=== PATIENT | female | born 1940 | race Caucasian/White ===

== ENCOUNTER 2017-09-27 22:37 | Inpatient (IN) | payer MEDICARE ==
[~2017-09-27] VITALS: Ht 152.4 cm; Wt 55.0 kg
[~2017-09-27 22:37] MED LIST: ATOR20TA15 PO; CALC500T37 PO; CITA10TA4 PO; DENO60P SQ; DOXY100C PO; ESTR0.5T PO; LANS30CA PO; LEVO100T5 PO; LORA0.5T PO; METO25TA3 PO; PERC5TAB12 PO; WOMETAB5; [UNRECOGNIZED DRUG - CODE]
[2017-09-27 22:46] VITALS: BP 120/73; PULSE 62; RESP 18; TEMP 98.1; O2SAT 96
--- NOTE | 2017-09-27 23:04 | PD ---
HPI Chief Complaint: Hip Injury Time Seen by Provider: 22:50 Travel History International Travel<30 days: No Contact w/Intl Traveler<30days: No Traveled to known affect area: No History of Present Illness HPI Patient is a 77-year-old female walking her dog tonight tripped over the dog fell on her buttock right-sided has right-sided hip pain unable to stand on her leg since the incident. She was transported to ER by EMS who gave her 6 of morphine in route she reports that she did not fall on cement and that the pain is very localized to the right inguinal area made worse with movement it hurt more with the bouncing of the ambulance. She has a past medical history of having back surgery and a CABG, patient is a history of having back surgery with screws in her lumbar spine that had dislodged due to osteoporosis. Tonight she fell landed on her buttocks on the grass was unable to weight-bear severe sharp pain in her right inguinal area paramedics gave her for morphine en route and when she arrives to me her exam is minimal pain reaction when I do internal rotation of her femur. X-rays are ordered labs are sent at this time her pain is 2 out of 10 when she does not move lying in stretcher at this time it is a dull ache in the right inguinal area without radiation PFSH Past Medical History Arthritis: Yes Anxiety: Yes Depression: Yes Cardiovascular Problems: Yes (CABG x4) High Cholesterol: Yes Coronary Artery Disease: Yes Diminished Hearing: Yes (Bilateral hearing aids) Thyroid Disease: Yes Tetanus Vaccination: Unknown Influenza Vaccination: No Past Surgical History Coronary Artery Bypass Graft: Yes (x4) Hysterectomy: Yes Joint Replacement: Yes (L hip,R knee) Neurologic Surgery: Yes (back surgery for scoliosis) Social History Alcohol Use: Yes (occasionally ) Tobacco Use: No Substance Use: No Allergies-Medications (Allergen,Severity, Reaction): Coded Allergies: Penicillins (Verified Adverse Reaction, Unknown, 05/14/17) Reported Meds & Prescriptions Reported Meds & Active Scripts Active Calcium 600+D 200 (Calcium Carbonate-Vitamin D) 600-200 Mg-Unit Tab 1 Tab PO BID Ergocalciferol 50,000 Unit Cap 50,000 Units PO Q7D Xarelto (Rivaroxaban) 10 Mg Tab 10 Mg PO DAILY Croydon (Hydrocodone-Acetaminophen) 5 Mg-325 Mg Tab 1 Tab PO Q4H PRN Reported Levothyroxine (Levothyroxine Sodium) 100 Mcg Tab 100 Mcg PO DAILY 90 Days Atorvastatin (Atorvastatin Calcium) 20 Mg Tab 20 Mg PO HS Lorazepam 0.5 Mg Tab 0.5 Mg PO TID PRN Estradiol 0.5 Mg Tab 0.5 Mg PO DAILY Citalopram (Citalopram Hydrobromide) 10 Mg Tab 10 Mg PO DAILY Lansoprazole 30 Mg Capdr 30 Mg PO DAILY Calcium Ascorbate 500 Mg Tab 600 Mg PO Strontium Nitrate (Strontium Nitrate (Bulk)) 1 Cry Cry 1 Tab BID Womens One Daily (Multiple Vitamins W/ Minerals) 27 Mg-0.4 Mg Tab Prolia Inj (Denosumab) 60 Mg/Ml Inj 60 Mg SQ Q180D Review of Systems Except as stated in HPI: all other systems reviewed are Neg Physical Exam Narrative GENERAL: laying flat in stretcher SKIN: Warm and dry. HEAD: Atraumatic. Normocephalic. EYES: Pupils equal and round. No scleral icterus. No injection or drainage. ENT: No nasal bleeding or discharge. Mucous membranes pink and moist. NECK: Trachea midline. No JVD. CARDIOVASCULAR: Regular rate and rhythm. RESPIRATORY: No accessory muscle use. Clear to auscultation. Breath sounds equal bilaterally. GASTROINTESTINAL: Abdomen soft, non-tender, nondistended. Hepatic and splenic margins not palpable. MUSCULOSKELETAL: Extremities + mild tenderness with internal rotation of femur ,( pt had 6 mg IVP of morphine prior to arrival ) . No obvious deformities. NEUROLOGICAL: Awake and alert. No obvious cranial nerve deficits. Motor grossly within normal limits. Five out of 5 muscle strength in the arms and legs. Normal speech. PSYCHIATRIC: Appropriate mood and affect; insight and judgment normal. Data Data Last Documented VS Vital Signs Date Time Temp Pulse Resp B/P (MAP) Pulse Ox O2 Delivery O2 Flow Rate FiO2 09/27/17 22:46 98.1 62 18 120/73 (89) 96 Orders Orders Hip, Uni(4+Vws) W Ap Pelvis (09/27/17 ) Morphine Inj (Morphine Inj) (09/28/17 00:15) Admit To Inpatient (09/28/17 ) Vital Signs (Adult) Q4H (09/28/17 00:07) Activity Bed Rest (09/28/17 00:07) Intake + Output ROMAN.QSHIFT (09/28/17 00:07) Sodium Chlor 0.9% 1000 Ml Inj (Ns 1000 M (09/28/17 00:07) Sodium Chloride 0.9% Flush (Ns Flush) (09/28/17 00:15) Sodium Chloride 0.9% Flush (Ns Flush) (09/28/17 09:00) Ondansetron Inj (Zofran Inj) (09/28/17 00:15) Comprehensive Metabolic Panel (09/29/17 06:00) Complete Blood Count With Diff (09/29/17 06:00) Pt Request For Service (09/28/17 00:07) Case Management Consult (09/28/17 00:07) Acetaminophen (Tylenol) (09/28/17 00:15) Acetamin-Hydrocod 325-5 Mg (Croydon 5-325 (09/28/17 00:15) Morphine Inj (Morphine Inj) (09/28/17 00:15) Docusate Sodium-Senna (Dayana-Colace) (09/28/17 09:00) Magnesium Hydroxide Liq (Milk Of Magnesi (09/28/17 00:15) Sennosides (Senokot) (09/28/17 00:15) Bisacodyl Supp (Dulcolax Supp) (09/28/17 00:15) Lactulose Liq (Lactulose Liq) (09/28/17 00:15) Inpatient Certification (09/28/17 ) Atorvastatin (Lipitor) (09/28/17 21:00) Citalopram (Celexa) (09/28/17 09:00) Lorazepam (Ativan) (09/28/17 00:15) Metoprolol Tartrate (Lopressor) (09/28/17 09:00) Pantoprazole (Protonix) (09/28/17 09:00) Admit Order (Ed Use Only) (09/28/17 00:10) MDM Medical Decision Making Medical Screen Exam Complete: Yes Emergency Medical Condition: Yes Differential Diagnosis fractured hip versus dislocation vs contusion vs pelvic ramus fracture vs lumbral spine injury Narrative Course pt xray shows angulated proximal femur fracture , Pt placed in [place] traction and per request of Dr Mckoy and admitted to meds/surg for OR in AM pain meds NPO and IV fluid admit. Diagnosis Primary Impression: Hip fracture, right Qualified Codes: S72.001A - Fracture of unspecified part of neck of right femur, initial encounter for closed fracture Scripts Metoprolol Tartrate (Metoprolol Tartrate) 25 Mg Tab 12.5 MG PO BID for Blood Pressure Management, #60 TAB 0 Refills Prov: Fer Sanchez MD 09/30/17 Calcium Carbonate-Vitamin D (Calcium 600+D 200) 600-200 Mg-Unit Tab 1 TAB PO BID for Nutritional Supplement, #90 TAB 0 Refills Prov: Sudhakar Farooq Jr. 09/28/17 Ergocalciferol (Ergocalciferol) 50,000 Unit Cap 33348 UNITS PO Q7D for Nutritional Supplement, #8 CAP Prov: Sudhakar Farooq Jr. 09/28/17 Rivaroxaban (Xarelto) 10 Mg Tab 10 MG PO DAILY for Blood Clot Prevention, #14 TAB 0 Refills Prov: Sudhakar Farooq Jr. 09/28/17 Hydrocodone-Acetaminophen (Croydon) 5 Mg-325 Mg Tab 1 TAB PO Q4H Y for PAIN, #60 TAB 0 Refills Prov: Sudhakar Farooq Jr. 09/28/17 Emmanuel Davalos MD Sep 27, 2017 23:04
--- NOTE | 2017-09-27 23:46 | RADRPT ---
EXAM DATE/TIME: 09/27/2017 23:28 [facility] COMPARISON: No previous studies available for comparison. INDICATIONS : Pain due to fall. MEDICAL HISTORY : Myocardial infarction. SURGICAL HISTORY : CABG. Right knee, left hip, lumbar. ENCOUNTER: Initial ACUITY: 1 day PAIN SCORE: 6/10 LOCATION: Right hip. FINDINGS: There is an angulated fracture of the proximal right femur which extends through the proximal shaft a nd lesser trochanter. There is almost 45 angulation and lateral displacement of the proximal fractu re fragment. The femoral head remains projected within the acetabulum. The bony acetabulum is intac t. Left total hip arthroplasty. Multilevel posterior instrumentation in the lower lumbar region and ezra ateral SI joint screws. CONCLUSION: Angulated and displaced fracture of the proximal femur. Silas Watts MD on September 27, 2017 at 23:42 Board Certified Radiologist. This report was verified electronically.
[2017-09-28] VITALS (8 sets, daily range): BP systolic 106–135; BP diastolic 52–64; PULSE 65–79; RESP 16–20; TEMP 97.4–98.3; O2SAT 95–99
[2017-09-28] MEDS ORDERED: SODIUM CHLORIDE 0.9% FLUSH 10 ML FLUSH IV FLUSH PRN (00:15)
[2017-09-28] MEDS ORDERED: MORPHINE SULFATE 2 MG/ML SYRINGE IV PUSH PRN (00:15)
[2017-09-28] MEDS ORDERED: LACTULOSE SYRUP 20 GM/30 ML CUP PO PRN (00:15)
[2017-09-28] MEDS ORDERED: SENNOSIDES 8.6 MG TAB PO PRN (00:15)
[2017-09-28] MEDS ORDERED: MAGNESIUM HYDROXIDE SUSP 30 ML CUP PO PRN (00:15)
[2017-09-28] MEDS ORDERED: MORPHINE SULFATE 4 MG/ML INJ IV PUSH ONE (00:15)
[2017-09-28] MEDS ORDERED: ONDANSETRON HCL 4 MG/2 ML VIAL IVP PRN (00:15)
[2017-09-28] MEDS ORDERED: LORazepam 0.5 MG TAB PO PRN (00:15)
[2017-09-28] MEDS ORDERED: BISACODYL 10 MG SUPP RECTAL PRN (00:15)
[2017-09-28] MEDS ORDERED: ACETAMINOPHEN 325 MG TAB PO PRN (00:15)
[2017-09-28] MEDS: SODIUM CHLOR 0.9% 1000 ML INJ 1,000 ML IV SCH ×3 (00:21→21:30)
[2017-09-28] MEDS ORDERED: diphenhydrAMINE HCL 50 MG/ML VIAL IV PUSH ONE (00:30)
[2017-09-28] MEDS ORDERED: DIAZEPAM 5 MG TAB PO PRN (00:45)
[2017-09-28] MEDS: HYDROmorphone HCL PF 0.5 MG/0.5 ML SYRINGE IV PUSH PRN ×2 (01:01→05:02)
--- NOTE | 2017-09-28 01:23 | HHI.HP ---
HPI Service [facility] Primary Care Physician Unknown Admission Diagnosis hip fracture Diagnoses: (1) Fall Diagnosis: Principal (2) Hip fracture, right Diagnosis: Principal (3) HTN (hypertension) Diagnosis: Principal Travel History International Travel<30 Days: No Contact w/Intl Traveler <30 Da: No Traveled to Known Affected Are: No History of Present Illness This is a 77-year-old female with a PMH of Anxiety, Depression, HTN, Hyperlipidemia, CAD and Hypothyroidism who was brought to the ER by EMS secondary to fall with right hip pain. Patient states she has had previous back surgery for scoliosis approx 3 years ago and has had some gait imbalance since then, tonight states she was out walking her dog on a grassy area and became unsteady on her feet, landed on her right side. No LOC or head trauma. Severe right hip pain, constant, 10/10, non-radiating, worse w/ movement. On arrival, BP 120/73, HR 62, O2 sat 96% on RA, Afebrile. Hip X-ray was angulated and displaced fracture of proximal femur. Dr. Mckoy consulted by ER physician , patient placed in traction, plan for surgical intervention in a.m. Review of Systems Except as stated in HPI: all other systems reviewed are Neg ROS: 14 point review of systems otherwise negative. Past Family Social History Past Medical History PMH: Anxiety, Depression, HTN, Hyperlipidemia, CAD and Hypothyroidism Past Surgical History PAST SURGICAL HISTORY: CABG, Left Hip Replacement, Right Knee Replacement, Back Surgery, Hysterectomy Allergies: Coded Allergies: Penicillins (Verified Adverse Reaction, Unknown, 05/14/17) Family History PAST FAMILY HISTORY: Reviewed. No h/o DM or CAD Social History PAST SOCIAL HISTORY: Occasional alcohol. Negative for tobacco or drugs per Physical Exam Vital Signs Vital Signs Date Time Temp Pulse Resp B/P (MAP) Pulse Ox O2 Delivery O2 Flow Rate FiO2 09/28/17 00:17 65 20 109/56 (73) 95 Room Air 09/27/17 22:46 98.1 62 18 120/73 (89) 96 Physical Exam PE: GENERAL: Elderly white female in no acute distress, however complains of pain. at bedside. HEENT: PERRLA, EOMI. No scleral icterus or conjunctival pallor. No lid lag or facial droop. CARDIOVASCULAR: Regular rate and rhythm. No obvious murmurs to auscultation. No chest tenderness to palpation. RESPIRATORY: No obvious rhonchi or wheezing. Clear to auscultation. Breath sounds equal bilaterally. GASTROINTESTINAL: Abdomen soft, non-tender, nondistended. BS normal. MUSCULOSKELETAL: Extremities without clubbing, cyanosis, or edema. No obvious deformities. RLE in traction, decreased ROM due to injury. NEUROLOGICAL: Awake, alert and oriented x4. No focal neurologic deficits. Moving both upper and lower extremities spontaneously. Caprini VTE Risk Assessment Caprini VTE Risk Assessment: Mod/High Risk (score >= 2) Caprini Risk Assessment Model Point Value = 1 Point Value = 2 Point Value = 3 Point Value = 5 Age 41-60 Minor surgery BMI > 25 kg/m2 Swollen legs Varicose veins or History of unexplained or recurrent spontaneous Oral contraceptives or hormone replacement Sepsis (< 1 month) Serious lung disease, including pneumonia (< 1 month) Abnormal pulmonary function Acute myocardial infarction Congestive heart failure (< 1 month) History of inflammatory bowel disease Medical patient at bed rest Age 61-74 Arthroscopic surgery Major open surgery (> 45 min) Laparoscopic surgery (> 45 min) Malignancy Confined to bed (> 72 hours) Immobilizing plaster cast Central venous access Age >= 75 History of VTE Family history of VTE Factor V Leiden Prothrombin [id number] Lupus anticoagulant Anticardiolipin antibodies Elevated serum homocysteine Heparin-induced thrombocytopenia Other congenital or acquired thrombophilia Stroke (< 1 month) Elective arthroplasty Hip, pelvis, or leg fracture Acute spinal cord injury (< 1 month) Prophylaxis Regimen Total Risk Factor Score Risk Level Prophylaxis Regimen 0-1 Low Early ambulation 2 Moderate Order ONE of the following: *Sequential Compression Device (SCD) *Heparin 5000 units SQ BID 3-4 Higher Order ONE of the following medications: *Heparin 5000 units SQ TID *Enoxaparin/Lovenox 40 mg SQ daily (WT < 150 kg, CrCl > 30 mL/min) *Enoxaparin/Lovenox 30 mg SQ daily (WT < 150 kg, CrCl > 10-29 mL/min) *Enoxaparin/Lovenox 30 mg SQ BID (WT < 150 kg, CrCl > 30 mL/min) AND/OR *Sequential Compression Device (SCD) 5 or more Highest Order ONE of the following medications: *Heparin 5000 units SQ TID (Preferred with Epidurals) *Enoxaparin/Lovenox 40 mg SQ daily (WT < 150 kg, CrCl > 30 mL/min) *Enoxaparin/Lovenox 30 mg SQ daily (WT < 150 kg, CrCl > 10-29 mL/min) *Enoxaparin/Lovenox 30 mg SQ BID (WT < 150 kg, CrCl > 30 mL/min) AND *Sequential Compression Device (SCD) Assessment and Plan Problem List: (1) Fall ICD Code: W19.XXXA - Unspecified fall, initial encounter (2) Hip fracture, right ICD Code: S72.001A - Fracture of unspecified part of neck of right femur, initial encounter for closed fracture Status: Acute (3) HTN (hypertension) ICD Code: I10 - Essential (primary) hypertension Assessment and Plan A/P: 1. Fall: s/p mechanical fall while walking her dog, no LOC or head trauma. 2. Right Hip Fx: Hip X-ray w/ angulated and displaced fracture proximal femur , images reviewed by me. Dr. Mckoy consulted, plan is for surgical intervention in am. NPO, IVF, analgesics/antiemetics, +muscle spasm, will start Valium prn. Labs pending, follow-up pre-op labs. 3. HTN: On Metoprolol at home, will resume w/ hold parameters as BP 100's. Monitor BP. 4. DVT Prophylaxis: Anticoagulation post op 5. Social work for dc planning as needed. 6. Case discussed w/ ER physician at length, records/imaging reviewed by me. Physician Certification 2 Midnight Certification Type: Admission for Inpatient Services Order for Inpatient Services The services are ordered in accordance with Medicare regulations or non- Medicare payer requirements, as applicable. In the case of services not specified as inpatient-only, they are appropriately provided as inpatient services in accordance with the 2-midnight benchmark. Estimated LOS (days): 2 days is the estimated time the patient will need to remain in the hospital, assuming treatment plan goals are met and no additional complications. Post-Hospital Plan: Not yet determined Problem Qualifiers (1) Hip fracture, right: Qualified Codes: S72.001A - Fracture of unspecified part of neck of right femur , initial encounter for closed fracture Carolina Mota MD Sep 28, 2017 01:23
[2017-09-28] MEDS ORDERED: POVIDONE IODINE 5% (ANTISEPSIS KIT) 4 APPLICATIONS EACH NARE PRN (02:15)
[2017-09-28] MEDS ORDERED: SODIUM CHLORID 0.9% 500 ML IV PRN (02:15)
[2017-09-28] MEDS ORDERED: CHLORHEXIDINE GLUCONATE 2 % 1 PACK (2 CLOTHS) TOPICAL PRN (02:15)
[2017-09-28] MEDS ORDERED: LACTATED RINGER'S 1000 ML IV PRN (02:15)
[2017-09-28 06:20] LABS: PROTHROMBIN TIME - PATIENT 10.3 SEC (9.8-11.6)
[2017-09-28] MEDS ORDERED: VANCOMYCIN HCL 1000 MG VIAL ONE (07:15)
[2017-09-28] MEDS ORDERED: SODIUM CHLOR 0.9% 250 ML INJ 250 ML ONE (07:16)
[2017-09-28] MEDS ORDERED: GENTAMICIN SULFATE 80 MG/2 ML VIAL ONE (07:16)
--- NOTE | 2017-09-28 07:23 | PD.ORT.PN ---
Subjective Subjective Remarks Mechanical fall. Right hip pain with fracture. Fell when walking dog Objective Vitals Vital Signs Date Time Temp Pulse Resp B/P (MAP) Pulse Ox O2 Delivery O2 Flow Rate FiO2 09/28/17 07:08 98.3 69 17 110/57 (74) 97 09/28/17 05:32 20 09/28/17 04:00 97.7 66 19 108/57 (74) 96 09/28/17 01:50 97.5 69 17 106/52 (70) 98 09/28/17 01:30 16 98 2.00 09/28/17 00:17 65 20 109/56 (73) 95 Room Air 09/27/17 22:46 98.1 62 18 120/73 (89) 96 I/O 09/27/17 09/27/17 09/27/17 09/28/17 09/28/17 09/28/17 07:00 15:00 23:00 07:00 15:00 23:00 Output Total 400 ml Balance -400 ml Output Urine Total 400 ml # Bowel Movements 0 Other Results Laboratory Tests Test 09/28/17 04:36 Prothromb Time International Ratio 1.0 RATIO Prothrombin Time 10.3 SEC (9.8-11.6) Objective Remarks Bilateral upper extremities: Full range of motion neurovascularly intact Left lower extremity: Range of motion neurovascularly intact Right lower extremity: Pain to palpation of hip pain with any movement of hip. She has total knee incision that is well-healed. Distally she has intact sensation with good capillary refills with active dorsiflexion and plantarflexion of foot Assessment & Plan Assessment and Plan Right intertrochanteric femur fracture N.p.o. Sign consents Surgery this morning for reduction of right femur and intramedullary sathya fixation Sudhakar Farooq Jr. Sep 28, 2017 07:23
[2017-09-28] MEDS ORDERED: ceFAZolin 2 GM PREMIX 50 ML ONE (09:14)
--- NOTE | 2017-09-28 09:28 | MB ---
cc: Garcia Webster MD DATE: 09/28/2017 REASON FOR CONSULTATION: Right proximal femur fracture CONSULTING PHYSICIAN: Dr. Mota. HISTORY OF PRESENT ILLNESS: Samara is a 77-year-old female who has a history of anxiety, depression, hypertension, high cholesterol, coronary artery disease and hypothyroidism. She describes a mechanical fall. She was walking her dog when she lost her balance and fell. She landed on her right side. She had immediate right hip pain. She presented to the Emergency Room where x-rays revealed a displaced right proximal femur fracture. She is currently awake and alert and on the orthopedic floor. Pain is worse with movement and does improve with rest. She denies dizziness, syncope, or loss of consciousness. PAST MEDICAL HISTORY: Anxiety, depression, hypertension, high cholesterol, coronary artery disease, and hypothyroidism. PAST SURGICAL HISTORY: Coronary artery bypass, left hip replacement, right knee replacement, back surgery, and hysterectomy. ALLERGIES: PENICILLINS. MEDICATIONS: Please see EMR for complete list of inpatient medications. This was reviewed. SOCIAL HISTORY: The patient drinks alcohol occasionally. She denies tobacco or drug use. FAMILY HISTORY: Noncontributory. REVIEW OF SYSTEMS: The patient denies headache, visual changes, neck pain, chest pain, shortness of breath, abdominal pain, nausea, vomiting, recent weight loss or fevers or chills or numbness or tingling of her extremities. She complains of right hip pain. The pain is worse with movement. LABORATORY DATA: The patient has an INR of 1.0. IMAGING STUDIES: X-rays of the right hip are reviewed. X-rays reveal a displaced right hip subtrochanteric fracture. PHYSICAL EXAMINATION: GENERAL: The patient is a mildly anxious 77-year-old female. She is awake and alert. She appears well-developed, well nourished. She is in no acute distress. VITAL SIGNS: Temperature 98.3, pulse 69, respirations 17, blood pressure 110/57, O2 saturation 97% on room air. HEENT: Head: The patient is normocephalic. Pupils are equal. NECK: Soft, nontender. The trachea is in the midline. ABDOMEN: Soft, nontender, and nondistended. EXTREMITIES: Examination of bilateral upper extremities reveals no pain with shoulder, elbow, or wrist motion. She has intact sensation in all fingers. She has good cap refill at fingers. Skin is intact. Radial pulses are palpable. Examination of right leg reveals pain with any hip motion. She is tender to palpation on her proximal femur and hip. She has no tenderness on her knee, tibia or ankle. Skin is intact. Dorsalis pedis pulses palpable. Sensation is intact. Examination of left leg reveals no pain with hip, knee or ankle motion. Skin is intact. Dorsalis pedis pulses palpable. Sensation is intact. IMPRESSION: 1. Displaced right proximal femur fracture. 2. Postmenopausal osteoporosis. 3. Anxiety. 4. Hypertension. 5. Coronary artery disease. 6. Hypothyroidism. PLAN: Treatment options were discussed with the patient. At this point, I would recommend right femur reduction and intramedullary nail fixation. Risks of surgery include bleeding, infection, injuries to arteries, nerves and blood vessels; nonunion, malunion, painful hardware as well as medical complications including blood clot, stroke, heart attack, and . All questions are answered. I will plan on surgery today. A mid-level provider in my office, nurse practitioner or PA, may see this patient on a follow-up basis and continue to implement the objective of this plan including: Starting or adjusting medications, injections of muscle, tendon, bursa or joints, cast application, orthotic or brace application, physical therapy, further radiographic studies including x-ray, MRI, CT, ultrasounds or bone scan, vascular studies, neurologic studies, or other specialist consultations, and proceeding with surgical management as appropriate. The patient will need to be on calcium and vitamin D supplementation. She will also be placed on deep thrombosis prophylaxis with Lovenox and Xarelto postoperatively. I discussed the possibility that the patient may need to go to inpatient rehabilitation depending on her safety after surgery. All questions were answered. Garcia MD BRIDGET Pollack/ANDREY , 09:04 AM , 09:27 AM
[2017-09-28] MEDS ORDERED: BUPIVACAINE/EPINEPHRINE 0.5% PF 30 ML VIAL ONE (09:41)
--- NOTE | 2017-09-28 09:57 | PD.OP ---
cc: Garcia Helms MD Operative Report Date of Surgery: Sep 28, 2017 Preoperative Diagnosis: Displaced right proximal femur fracture Postoperative Diagnosis: Procedure: Reduction and intramedullary sathya fixation right femur Anesthesia: General Surgeon: Garcia Helms Senior Enterprise Architect(s): Homar Farooq PA-C The surgical procedure was assisted by my physician assistant portfolio manager. My P.A. presence was necessary throughout this case for the manipulation and positioning of the surgical extremity. My P.A. was assisting me throughout the duration of this procedure. The skill set of a physician assistant portfolio manager was medically necessary to complete this procedure. During the surgical case the neurosurgical nurse was working at the back table and the physician assistant portfolio manager was directly assisting me. Operation and Findings: Implants used: Biomet 11 mm x [360]mm troch nail Plan of activity: Weight-bear as tolerated Patient was seen and evaluated preoperatively. The patient has significant hip pain from proximal femur fracture. The risk and benefits of surgery were discussed in depth with the patient to include bleeding, infection, nonunion, malunion, need for hip replacement, painful hardware, as well as medical competitions including blood clots, stroke, heart attack, and . Informed consent was obtained. Operative site was marked. Patient was brought to the operating room and placed on fracture table. IV sedation was administered by anesthesiologist. Timeout procedure was performed. Hip and leg were prepped with alcohol followed by DuraPrep and draped in the usual sterile fashion. IV antibiotics were given prior to incision. Procedure began with reduction of fracture. Traction was applied. The leg was manipulated to achieve reduction. Excellent reduction was achieved. Fluoroscopy was used to confirm reduction. A three inch incision was made proximal to the trochanter. Subcutaneous tissue was dissected bluntly. Guidepin was placed at the tip of the trochanter and advanced into the femoral canal. Fluoroscopy confirmed appropriate guidepin placement. A opening reamer was placed over the guidepin. A long ball tipped guide pin was now placed down the femoral canal into the center of the distal femur. The nail length was now measured. Fluoroscopy confirmed appropriate guidepin placement. Flexible reamers were now passed over the guidepin to ream the intramedullary canal. The nail was attached to the insertion handle. Nail was now placed over the guidepin into the femoral canal. Fluoroscopy confirmed appropriate nail placement. A second incision was made over the lateral thigh. Cannulas were placed through the insertion handle down to the femur. Guidepin was now placed through the femoral nail into the center of the femoral head. Fluoroscopy confirmed appropriate guidepin placement. Screw length was measured. Cannulated drill was placed over the guidepin. Appropriate length lag screw was now placed. Traction was released and compression was applied. The set screw was now tightened in dynamic mode. Next, using perfect tanacross technique a distal interlocking screw was placed. Screw holes were predrilled and screw lengths were measured. Final fluoroscopy revealed well aligned fracture with well-placed hardware. Incision was closed with 3-0 Vicryl and viviana. Sterile dressings were applied. Patient was awakened and transferred to recovery room. Garcia Helms MD Sep 28, 2017 09:57
[2017-09-28] MEDS ORDERED: ERGOCALCIFEROL (VIT D2) 50,000 UNIT CAP PO ONE (10:00)
[2017-09-28] MEDS ORDERED: MORPHINE SULFATE 4 MG/ML INJ IV PUSH PRN (10:00)
--- NOTE | 2017-09-28 10:18 | EKG ---
Date Performed: 09/28/2017 Time Performed: 06:11:00 PTAGE: 77 years EKG: Sinus rhythm Extensive ST-T changes are nonspecific Borderline ECG NO PREVIOUS TRACING DOCTOR: Reid Espinoza Interpretating Date/Time 09/28/2017 10:16:27
[2017-09-28] MEDS ORDERED: *diphenhydrAMINE HCL 50 MG/ML VIAL PERIprocedural Use ONLY ONE (10:23)
[2017-09-28] MEDS: SODIUM CHLORIDE 0.9% FLUSH 10 ML FLUSH IV FLUSH SCH ×2 (11:28→21:29)
--- NOTE | 2017-09-28 11:35 | RADRPT ---
EXAM DATE/TIME: 09/28/2017 09:51 [place] COMPARISON: No previous studies available for comparison. INDICATIONS : Open reduction internal fixation of the right femur. MEDICAL HISTORY : Myocardial infarction. SURGICAL HISTORY : CABG. Right knee, left hip, lumbar. ENCOUNTER: Subsequent ACUITY: 2 days PAIN SCORE: Non-responsive. LOCATION: Right femur. FINDINGS: 4 spot intraoperative fluoroscopic views of the right femur demonstrate antegrade intramedullary sathya and femoral neck fixation hardware placement seen with a distal interlocking screw, across right prox imal femur fracture. CONCLUSION: Operative fixation of right proximal femur fracture. Danyel Zapata MD on September 28, 2017 at 11:32 Board Certified Radiologist. This report was verified electronically.
[2017-09-28] MEDS ORDERED: XARE10TA PO (11:47)
[2017-09-28] MEDS ORDERED: VITA500012 PO (11:47)
[2017-09-28] MEDS ORDERED: CALCTAB19 PO (11:47)
[2017-09-28] MEDS ORDERED: NORC5TAB PO (11:47)
[2017-09-28] MEDS ORDERED: WALKER WHEELS/F1 MIS (11:47)
[2017-09-28] MEDS ORDERED: LIDOCAINE HCL 1% PF 5 ML SYRINGE OTHER ONE (12:00)
[2017-09-28] MEDS ORDERED: PROPOFOL 200 MG/20 ML AMP IV ONE (12:00)
[2017-09-28] MEDS ORDERED: DEXAMETHASONE SOD PHOS 4 MG/ML VIAL IV ONE (12:00)
[2017-09-28] MEDS ORDERED: ePHEDrine/NS 25 MG/5 ML SYRINGE IV ONE (12:00)
[2017-09-28] MEDS ORDERED: PHENYLEPH/NS 1000 MCG/10 ML SYR IV ONE (12:00)
[2017-09-28] MEDS: CALCIUM/VITAMIN D 250 MG/125 U TAB PO SCH ×2 (13:54→19:26)
[2017-09-28] MEDS: PANTOPRAZOLE SOD 40 MG DELAYED RELEASE TAB PO SCH (14:05)
[2017-09-28] MEDS: DOCUSATE SODIUM 50 MG/SENNA 8.6 MG TAB PO SCH ×2 (14:05→21:29)
[2017-09-28] MEDS: ACETAMINOPHEN/HYDROcodone 325 MG/5 MG TAB PO PRN ×2 (14:05→22:25)
[2017-09-28] MEDS: CITALOPRAM HYDROBROMIDE 20 MG TAB PO SCH (14:05)
[2017-09-28] MEDS: METOPROLOL TARTRATE 25 MG TAB PO SCH ×2 (14:05→21:29)
[2017-09-28] MEDS: diphenhydrAMINE HCL 25 MG CAP PO PRN ×2 (16:45→22:24)
[2017-09-28] MEDS: ATORVASTATIN 20 MG TAB PO SCH (21:29)
[2017-09-29] VITALS (7 sets, daily range): BP systolic 60–144; BP diastolic 56–68; PULSE 65–83; RESP 16–18; TEMP 97.5–98.9; O2SAT 92–98
[2017-09-29] MEDS: ACETAMINOPHEN/HYDROcodone 325 MG/5 MG TAB PO PRN ×4 (04:56→23:03)
[2017-09-29] MEDS: SODIUM CHLOR 0.9% 1000 ML INJ 1,000 ML IV SCH ×3 (04:56→19:16)
[2017-09-29 06:50] LABS: AUTOMATED NEUTROPHIL # 10.2 TH/MM3 (1.8-7.7); BASOPHIL % 0.1 % (0.0-2.0); HEMOGLOBIN 10.3 GM/DL (11.6-15.3); LYMPH % 5.6 % (9.0-44.0); LYMPHOCYTE # 0.7 TH/MM3 (1.0-4.8); MEAN CELL VOLUME 92.8 FL (80.0-100.0); MEAN CORPUSCULAR HEMOGLOBIN 31.8 PG (27.0-34.0); MEAN CORPUSCULAR HGB CONC 34.2 % (32.0-36.0); MEAN PLATELET VOLUME 8.4 FL (7.0-11.0); MONO % 8.1 % (0.0-8.0); NEUT % 86.2 % (16.0-70.0); PLATELET COUNT 193 TH/MM3 (150-450); RED BLOOD COUNT 3.23 MIL/MM3 (4.00-5.30); RED CELL DISTRIBUTION WIDTH 12.4 % (11.6-17.2); WHITE BLOOD COUNT 11.8 TH/MM3 (4.0-11.0)
[2017-09-29 07:03] LABS: ALBUMIN 3.1 GM/DL (3.4-5.0); ALT (GPT) 22 U/L (10-53); AST (GOT) 25 U/L (15-37); BICARBONATE 24.2 MEQ/L (21.0-32.0); BLOOD UREA NITROGEN 21 MG/DL (7-18); CALCIUM 8.7 MG/DL (8.5-10.1); CHLORIDE 105 MEQ/L (98-107); GLOMERULAR FILTRATION RATE 61 ML/MIN (>89); GLUCOSE,RANDOM 114 MG/DL (74-106); SODIUM (NA) 138 MEQ/L (136-145)
[2017-09-29 07:06] LABS: ALKALINE PHOSPHATASE 56 U/L (45-117); TOTAL BILIRUBIN ADULT 0.7 MG/DL (0.2-1.0); TOTAL PROTEIN 6.1 GM/DL (6.4-8.2)
[2017-09-29] MEDS: CITALOPRAM HYDROBROMIDE 20 MG TAB PO SCH (09:00)
[2017-09-29] MEDS: METOPROLOL TARTRATE 25 MG TAB PO SCH ×3 (09:00→19:16)
--- NOTE | 2017-09-29 09:33 | PD.ORT.PN ---
Subjective Subjective Remarks Pain control with no new complaints Objective Vitals Vital Signs Date Time Temp Pulse Resp B/P (MAP) Pulse Ox O2 Delivery O2 Flow Rate FiO2 09/29/17 08:00 98.0 65 18 125/58 (80) 94 09/29/17 05:10 98.1 75 18 60/ 95 09/29/17 00:00 98.9 75 18 129/68 (88) 95 09/28/17 21:16 98.3 79 18 135/64 (87) 95 09/28/17 16:00 97.8 75 17 122/56 (78) 98 09/28/17 15:59 18 09/28/17 12:00 97.4 69 17 119/55 (76) 99 09/28/17 10:40 98.1 73 14 125/58 (80) 100 Nasal Cannula 2 09/28/17 10:30 67 14 123/64 (83) 100 Nasal Cannula 2 09/28/17 10:15 98.1 79 14 134/60 (84) 100 Nasal Cannula 2 I/O 09/28/17 09/28/17 09/28/17 09/29/17 09/29/17 09/29/17 07:00 15:00 23:00 07:00 15:00 23:00 Intake Total 2100 ml Output Total 400 ml 1550 ml Balance -400 ml 550 ml Intake IV Total 2100 ml Output Urine Total 400 ml 1500 ml Estimated Blood Loss 50 ml # Bowel Movements 0 Result Diagram: 09/29/17 0436 09/29/17 0436 Objective Remarks Bilateral upper extremities: Full range of motion neurovascularly intact Left lower extremity: Range of motion neurovascularly intact Right lower extremity: Clean dry dressings with minimal swelling. She has total knee incision that is well-healed. Distally she has intact sensation with good capillary refills with active dorsiflexion and plantarflexion of foot Assessment & Plan Assessment and Plan Right intertrochanteric femur fracture IM nail POD 1 Physical therapy weightbearing as tolerated right lower extremity Daily dressing changes beginning POD 2 Case management for home discharge versus rehab Lovenox Incentive spirometry Follow-up with Dr. Webster or PA in 2 weeks Sudhakar Farooq Jr. Sep 29, 2017 09:33
[2017-09-29] MEDS: SODIUM CHLORIDE 0.9% FLUSH 10 ML FLUSH IV FLUSH SCH ×2 (10:00→19:16)
[2017-09-29] MEDS: diphenhydrAMINE HCL 25 MG CAP PO PRN (12:02)
[2017-09-29] MEDS: PANTOPRAZOLE SOD 40 MG DELAYED RELEASE TAB PO SCH (12:02)
[2017-09-29] MEDS: DOCUSATE SODIUM 50 MG/SENNA 8.6 MG TAB PO SCH ×2 (12:02→19:15)
[2017-09-29] MEDS: ENOXAPARIN SODIUM 30 MG/0.3 ML SYRINGE SQ SCH (12:02)
[2017-09-29] MEDS: CALCIUM/VITAMIN D 250 MG/125 U TAB PO SCH ×3 (12:02→17:58)
--- NOTE | 2017-09-29 13:56 | HHI.FF ---
Face to Face Verification Diagnosis: (1) HTN (hypertension) (2) Hip fracture, right (3) Fall Physical Therapy Order: Evaluate and Treat Home Health Nursing Order: Wound care and dressing changes Nursing assessment with vital signs Music Educator Order: To Evaluate: Support services I have seen patient Samara Ford on 09/29/17. My clinical findings support the need for the requested home health care services because: Limited ability to care for self I certify that my clinical findings support that this patient is homebound because: Unsafe to leave home unassisted Fer Sanchez MD Sep 29, 2017 13:55
[2017-09-29] MEDS ORDERED: PILL SPLITTER OTHER PRN (14:15)
[2017-09-29] MEDS ORDERED: DOCUSATE SODIUM 50 MG/SENNA 8.6 MG TAB PO ONE (14:30)
[2017-09-29] MEDS ORDERED: MAGNESIUM HYDROXIDE SUSP 30 ML CUP PO ONE (14:30)
[2017-09-29] MEDS: CHOLECALCIFEROL (VIT D3) 5000 UNIT CAP PO SCH (17:09)
[2017-09-29] MEDS: ATORVASTATIN 20 MG TAB PO SCH (19:16)
--- NOTE | 2017-09-29 23:00 | HHI.PR ---
Subjective Remarks Patient seen today around noon. Says she is feeling all right. Reports pain is controlled. Denies any chest. This breath. She reports a bowel movement, however not recorded. Says she would like to go home with home health Objective Vital Signs Date Time Temp Pulse Resp B/P (MAP) Pulse Ox O2 Delivery O2 Flow Rate FiO2 09/29/17 16:00 97.5 73 18 117/56 (76) 97 09/29/17 12:00 98.5 70 18 144/65 (91) 98 09/29/17 08:00 98.0 65 18 125/58 (80) 94 09/29/17 05:10 98.1 75 18 60/ 95 09/29/17 00:00 98.9 75 18 129/68 (88) 95 I/O 09/28/17 09/28/17 09/28/17 09/29/17 09/29/17 09/29/17 07:00 15:00 23:00 07:00 15:00 23:00 Intake Total 2100 ml Output Total 400 ml 1550 ml 2300 ml 200 ml Balance -400 ml 550 ml -2300 ml -200 ml Intake IV Total 2100 ml Output Urine Total 400 ml 1500 ml 2300 ml 200 ml Estimated Blood Loss 50 ml # Voids 2 # Bowel Movements 0 Result Diagram: 09/29/17 0436 09/29/17 0436 Objective Remarks GENERAL: patient lying in bed. Appears comfortable. Alert and oriented 3. SKIN: Warm and dry. HEAD: Normocephalic. EYES: No scleral icterus. No injection or drainage. NECK: Supple, trachea midline. No JVD. CARDIOVASCULAR: Regular rate and rhythm without murmurs, gallops, or rubs. RESPIRATORY: Breath sounds equal bilaterally. No accessory muscle use. GASTROINTESTINAL: Abdomen soft, non-tender, nondistended. MUSCULOSKELETAL: No cyanosis, or edema. postoperative hip not examined. Peripheral. Intact. BACK: Nontender without obvious deformity. No CVA tenderness. A/P Assessment and Plan //Postoperative day one right hip fracture IM nail. //Status post mechanical fall Adequate hydration as per surgical service Postsurgical management as per surgical service. = Likely discharge home with home health tomorrow. // HTN: Blood pressure acceptable. Continue home medications // DVT Prophylaxis: Anticoagulation post op Discharge Planning likely discharge home with home health tomorrow Fer Sanchez MD Sep 29, 2017 23:00
[2017-09-30] MEDS: ACETAMINOPHEN/HYDROcodone 325 MG/5 MG TAB PO PRN ×2 (05:00→13:21)
[2017-09-30 05:12] VITALS: BP 117/59; PULSE 66; RESP 16; TEMP 98.2; O2SAT 94
[2017-09-30 08:00] VITALS: BP 122/58; PULSE 66; RESP 18; TEMP 97.2; O2SAT 95
[2017-09-30] MEDS: SODIUM CHLORIDE 0.9% FLUSH 10 ML FLUSH IV FLUSH SCH (08:31)
[2017-09-30] MEDS: DOCUSATE SODIUM 50 MG/SENNA 8.6 MG TAB PO SCH (08:31)
[2017-09-30] MEDS: ENOXAPARIN SODIUM 30 MG/0.3 ML SYRINGE SQ SCH (08:31)
[2017-09-30] MEDS: CHOLECALCIFEROL (VIT D3) 5000 UNIT CAP PO SCH (08:32)
[2017-09-30] MEDS: CALCIUM/VITAMIN D 250 MG/125 U TAB PO SCH ×2 (08:32→13:21)
[2017-09-30] MEDS: CITALOPRAM HYDROBROMIDE 20 MG TAB PO SCH (08:32)
[2017-09-30] MEDS: METOPROLOL TARTRATE 25 MG TAB PO SCH (08:32)
[2017-09-30] MEDS: PANTOPRAZOLE SOD 40 MG DELAYED RELEASE TAB PO SCH (08:32)
[2017-09-30] MEDS ORDERED: METO25TA3 PO (08:57)
--- NOTE | 2017-09-30 09:01 | HHI.PR ---
Subjective Remarks Patient says she is feeling well. Denies any chest pain or shortness of breath. Feels like going home. Objective Vital Signs Date Time Temp Pulse Resp B/P (MAP) Pulse Ox O2 Delivery O2 Flow Rate FiO2 09/30/17 05:12 98.2 66 16 117/59 (78) 94 09/29/17 23:06 98.8 83 16 127/59 (81) 92 09/29/17 19:12 98.5 81 18 137/63 (87) 96 09/29/17 16:00 97.5 73 18 117/56 (76) 97 09/29/17 12:00 98.5 70 18 144/65 (91) 98 I/O 09/29/17 09/29/17 09/29/17 09/30/17 09/30/17 09/30/17 07:00 15:00 23:00 07:00 15:00 23:00 Output Total 2300 ml 200 ml Balance -2300 ml -200 ml Output Urine Total 2300 ml 200 ml # Voids 6 2 # Bowel Movements 1 0 Result Diagram: 09/29/17 0436 09/29/17 0436 Objective Remarks GENERAL: patient lying in bed. Appears comfortable. Alert and oriented 3. SKIN: Warm and dry. HEAD: Normocephalic. EYES: No scleral icterus. No injection or drainage. NECK: Supple, trachea midline. No JVD. CARDIOVASCULAR: Regular rate and rhythm without murmurs, gallops, or rubs. RESPIRATORY: Breath sounds equal bilaterally. No accessory muscle use. GASTROINTESTINAL: Abdomen soft, non-tender, nondistended. MUSCULOSKELETAL: No cyanosis, or edema. postoperative hip dressing clean dry and intact. BACK: Nontender without obvious deformity. No CVA tenderness. A/P Assessment and Plan //Postoperative day one right hip fracture IM nail. //Status post mechanical fall Adequate hydration as per surgical service Postsurgical management as per surgical service. = Discharge home with home health. Xarelto as per orthopedics. Follow-up orthopedics as outpatient. // HTN: Blood pressure acceptable. Patient reports she is on 12.5 mg of metoprolol twice daily. Adjusted. Continue home medications // DVT Prophylaxis: Anticoagulation post op Discharge Planning Discharge home with home health Fer Sanchez MD Sep 30, 2017 09:01
--- NOTE | 2017-09-30 09:03 | PD.ORT.PN ---
Subjective Subjective Remarks Pain control with no new complaints Objective Vitals Vital Signs Date Time Temp Pulse Resp B/P (MAP) Pulse Ox O2 Delivery O2 Flow Rate FiO2 09/30/17 05:12 98.2 66 16 117/59 (78) 94 09/29/17 23:06 98.8 83 16 127/59 (81) 92 09/29/17 19:12 98.5 81 18 137/63 (87) 96 09/29/17 16:00 97.5 73 18 117/56 (76) 97 09/29/17 12:00 98.5 70 18 144/65 (91) 98 I/O 09/29/17 09/29/17 09/29/17 09/30/17 09/30/17 09/30/17 07:00 15:00 23:00 07:00 15:00 23:00 Output Total 2300 ml 200 ml Balance -2300 ml -200 ml Output Urine Total 2300 ml 200 ml # Voids 6 2 # Bowel Movements 1 0 Result Diagram: 09/29/17 0436 09/29/17 0436 Objective Remarks Bilateral upper extremities: Full range of motion neurovascularly intact Left lower extremity: Range of motion neurovascularly intact Right lower extremity: Clean dry dressings with minimal swelling. She has total knee incision that is well-healed. Distally she has intact sensation with good capillary refills with active dorsiflexion and plantarflexion of foot Assessment & Plan Assessment and Plan Right intertrochanteric femur fracture IM nail POD 2 Physical therapy weightbearing as tolerated right lower extremity Daily dressing changes Case management for home discharge with home health care Lovenox Incentive spirometry Follow-up with Dr. Webster or [place] in 2 weeks Sudhakar Farooq Jr. Sep 30, 2017 09:03
--- NOTE | 2017-09-30 09:04 | HHI.DS ---
Discharge Summary Admission Date Sep 28, 2017 at 00:11 Discharge Date: Sep 30, 2017 Admitting Diagnosis hip fracture (1) Fall ICD Code: W19.XXXA - Unspecified fall, initial encounter (2) Hip fracture, right ICD Code: S72.001A - Fracture of unspecified part of neck of right femur, initial encounter for closed fracture Status: Acute (3) HTN (hypertension) ICD Code: I10 - Essential (primary) hypertension Procedures Right hip intramedullary sathya fixation. Please see report Brief History - From Admission This is a 77-year-old female with a PMH of Anxiety, Depression, HTN, Hyperlipidemia, CAD and Hypothyroidism who was brought to the ER by EMS secondary to fall with right hip pain. Patient states she has had previous back surgery for scoliosis approx 3 years ago and has had some gait imbalance since then, tonight states she was out walking her dog on a grassy area and became unsteady on her feet, landed on her right side. No LOC or head trauma. Severe right hip pain, constant, 10/10, non-radiating, worse w/ movement. On arrival, BP 120/73, HR 62, O2 sat 96% on RA, Afebrile. Hip X-ray was angulated and displaced fracture of proximal femur. Dr. Mckoy consulted by ER physician , patient placed in traction, plan for surgical intervention in a.m. CBC/BMP: 09/29/17 0436 09/29/17 0436 Significant Findings Laboratory Tests Test 09/28/17 04:36 09/28/17 11:58 09/29/17 04:36 Activated Partial Thromboplast Time 24.2 SEC (24.3-30.1) White Blood Count 11.8 TH/MM3 (4.0-11.0) Red Blood Count 3.23 MIL/MM3 (4.00-5.30) Hemoglobin 10.3 GM/DL (11.6-15.3) Hematocrit 30.0 % (35.0-46.0) Neutrophils (%) (Auto) 86.2 % (16.0-70.0) Lymphocytes (%) (Auto) 5.6 % (9.0-44.0) Monocytes (%) (Auto) 8.1 % (0.0-8.0) Neutrophils # (Auto) 10.2 TH/MM3 (1.8-7.7) Lymphocytes # (Auto) 0.7 TH/MM3 (1.0-4.8) Monocytes # (Auto) 1.0 TH/MM3 (0-0.9) Blood Urea Nitrogen 21 MG/DL (7-18) Random Glucose 114 MG/DL (74-106) Total Protein 6.1 GM/DL (6.4-8.2) Albumin 3.1 GM/DL (3.4-5.0) Estimat Glomerular Filtration Rate 61 ML/MIN (>89) Imaging Last Impressions Femur X-Ray 09/28/17 0000 Signed Impressions: Service Date/Time: Thursday, September 28, 2017 09:51 - CONCLUSION: Operative fixation of right proximal femur fracture. Danyel Zapata MD Hip and Pelvis X-Ray 09/27/17 0000 Signed Impressions: Service Date/Time: Wednesday, September 27, 2017 23:28 - CONCLUSION: Angulated and displaced fracture of the proximal femur. Silas Watts MD Hospital Course Imaging above showed right sided femur fracture. Patient underwent intramedullary nail fixation by orthopedics. Patient is recovering well with return of bowel function. She will be started on anticoagulation as per orthopedics. Follow-up orthopedics as outpatient. For problem based summary from most recent progress note, please see below. //Postoperative day 2 right hip fracture IM nail. //Status post mechanical fall Adequate hydration as per surgical service Postsurgical management as per surgical service. = Discharge home with home health. Xarelto as per orthopedics. Follow-up orthopedics as outpatient. // HTN: Blood pressure acceptable. Patient reports she is on 12.5 mg of metoprolol twice daily. Adjusted. Continue home medications // DVT Prophylaxis: Anticoagulation post op Discharge Planning Discharge home with home health Pt Condition on Discharge: Good Discharge Disposition: Disch w/ Home Health Serv Discharge Time: > 30 minutes Discharge Instructions DIET: Follow Instructions for: Diabetic Diet Activities you can perform: Regular-No Restrictions Activities to Avoid: Lifting/Bending Follow up Referrals: Orthopedics - 2 Weeks @ [facility] with Garcia Webster MD PCP Follow-up - 1 Week New Medications: Calcium Carbonate-Vitamin D (Calcium 600+D 200) 600-200 Mg-Unit Tab 1 TAB PO BID for Nutritional Supplement, #90 TAB 0 Refills Ergocalciferol (Ergocalciferol) 50,000 Unit Cap 20812 UNITS PO Q7D for Nutritional Supplement, #8 CAP Hydrocodone-Acetaminophen ([place]) 5 Mg-325 Mg Tab 1 TAB PO Q4H PRN for PAIN, #60 TAB 0 Refills Rivaroxaban (Xarelto) 10 Mg Tab 10 MG PO DAILY for Blood Clot Prevention, #14 TAB 0 Refills Walker with Front Wheels (Walker with Front Wheels) 1 Mis Mis EA .XX DIRECTED, #1 0 Refills Changed Medications: Metoprolol Tartrate (Metoprolol Tartrate) 25 Mg Tab 12.5 MG PO BID for Blood Pressure Management, #60 TAB 0 Refills (Changed from: 25 MG) Continued Medications: Atorvastatin (Atorvastatin) 20 Mg Tab 20 MG PO HS for Cholesterol Management, #90 TAB 0 Refills Calcium Ascorbate (Calcium Ascorbate) 500 Mg Tab 600 MG PO for Calcium Supplement, TAB 0 Refills Citalopram (Citalopram) 10 Mg Tab 10 MG PO DAILY for Control Depression, #30 TAB 0 Refills Denosumab Inj (Prolia Inj) 60 Mg/Ml Inj 60 MG SQ Q180D, #1 VIAL 0 Refills Estradiol (Estradiol) 0.5 Mg Tab 0.5 MG PO DAILY for Estrogen Supplements, #90 TAB 0 Refills Lansoprazole (Lansoprazole) 30 Mg Capdr 30 MG PO DAILY, #90 CAP 0 Refills Levothyroxine (Levothyroxine) 100 Mcg Tab 100 MCG PO DAILY for Thyroid for 90 Days, #30 TAB 0 Refills Lorazepam (Lorazepam) 0.5 Mg Tab 0.5 MG PO TID PRN for ANXIETY, TAB 0 Refills Multiple Vitamins W/ Minerals (Womens One Daily) 27 Mg-0.4 Mg Tab Strontium Nitrate (Bulk) (Strontium Nitrate) 1 Cry Cry 1 TAB BID, #2 Discontinued Medications: Doxycycline Hyclate (Doxycycline Hyclate) 100 Mg Cap 100 MG PO BID for Infection, #14 CAP 0 Refills Oxycodone-Acetaminophen (Percocet) 5-325 mg Tab 1-2 TAB PO Q6H PRN for PAIN, #60 TAB 0 Refills Fer Sanchez MD Sep 30, 2017 09:04
[2017-09-30 10:56] VITALS: BP 106/59; PULSE 73; RESP 16; TEMP 97.6; O2SAT 96
[2017-09-30] MEDS: SODIUM CHLOR 0.9% 1000 ML INJ 1,000 ML IV SCH (12:07)
== END 2017-09-30 15:14 | disposition home health service (06) | DRG 482 ==
LOC: NEPE 22:37 → NEDA 09-28 00:11 → N06B 09-28 01:36
PROVIDERS: ADMIT Internal Medicine; ATTEND Internal Medicine
PROC: 0QS604Z Reposition Right Upper Femur with Internal Fixation Device, Open Approach (ICD-10-PCS; principal; 2017-09-28 09:32)
DX: S72.141A Displaced intertrochanteric fracture of right femur, initial encounter for closed fracture (principal); I10 Essential (primary) hypertension; F32.9 Major depressive disorder, single episode, unspecified; M81.0 Age-related osteoporosis without current pathological fracture; F41.9 Anxiety disorder, unspecified; I25.10 Atherosclerotic heart disease of native coronary artery without angina pectoris; E03.9 Hypothyroidism, unspecified; E78.5 Hyperlipidemia, unspecified; Z96.642 Presence of left artificial hip joint; Z96.651 Presence of right artificial knee joint; Z95.1 Presence of aortocoronary bypass graft; Z88.0 Allergy status to penicillin; Z79.01 Long term (current) use of anticoagulants; Z79.891 Long term (current) use of opiate analgesic; Z79.899 Other long term (current) drug therapy; W01.0XXA Fall on same level from slipping, tripping and stumbling without subsequent striking against object, initial encounter
CPT/HCPCS: 73503; 73552; 76000; 80053; 82306; 85025; 85610; 85730; 86850; 86900; 86901; 93005; J0690; J1100; J1170; J1200; J1580; J1650; J2270; J2370; J3010; J3370; J7030; J7050